=== PATIENT | female | born 1945 | race Caucasian/White ===

== ENCOUNTER 2023-12-01 18:29 | Inpatient (IN) | payer OTHER ==
[2023-12-01 19:47] LABS: BASO % 0.1 % (0-2.0); EOS % 0.1 % (0-4.5); HEMATOCRIT 44.5 % (32.4-45.2); HEMOGLOBIN 14.9 GM/dL (10.7-15.3); LYMPH % 5.1 % (8-40); MCH 28.7 pg (25.7-33.7); MCHC 33.5 g/dl (32.0-36.0); MEAN CELL VOLUME 85.6 fl (80-96); MEAN PLT VOLUME 9.2 fl (7.5-11.1); MONO % 5.2 % (3.8-10.2); NEUT % 89.5 % (42.8-82.8); PLATELET COUNT 286 10^3/uL (134-434); RBC 5.19 M/mm3 (3.60-5.2); WHITE BLOOD COUNT 17.8 K/mm3 (4.0-10.0)
[2023-12-01] MEDS ORDERED: FAMOTIDINE 20 MG/50 ML IVPB 20 MG/50 ML MG IVPB ONE (19:54)
[2023-12-01] MEDS ORDERED: ONDANSETRON 4 MG/2 ML VIAL ONE (19:54)
[2023-12-01] MEDS ORDERED: ACETAMINOPHEN INJECTION 100 ML ONE (19:54)
[2023-12-01 19:56] LABS: PROTHROMBIN TIME (PATIENT) 11.5 SEC (9.7-13.0)
[2023-12-01 19:59] LABS: ACTIVATED PTT 29.1 SECONDS (25.2-36.5)
[2023-12-01] MEDS: ACETAMINOPHEN 1000 MG/100 ML BAG IVPB ONE (20:01)
[2023-12-01] MEDS: FAMOTIDINE 20 MG/50 ML IVPB 20 MG/50 ML MG IVPB ONE (20:01)
[2023-12-01] MEDS: ONDANSETRON 4 MG/2 ML VIAL IVPUSH ONE (20:01)
[2023-12-01 20:07] LABS: POTASSIUM 3.1 mmol/L (3.5-5.1)
[2023-12-01 20:10] LABS: CALCIUM 10.2 mg/dL (8.5-10.1)
[2023-12-01 20:11] LABS: ALBUMIN 3.6 g/dl (3.4-5.0); BLOOD UREA NITROGEN 35.7 mg/dL (7-18)
[2023-12-01 20:14] LABS: CREATININE 1.3 mg/dL (0.55-1.3)
[2023-12-01 20:16] LABS: BILIRUBIN,TOTAL 0.6 mg/dL (0.2-1); TOT PROT 7.6 g/dl (6.4-8.2)
[2023-12-01] MEDS ORDERED: PANTOPRAZOLE SODIUM 40 MG/100 ML BAG IVPB ONE (20:17)
[2023-12-01] MEDS ORDERED: PANTOPRAZOLE SODIUM 40 MG VIAL ONE (20:18)
[2023-12-01] MEDS: PANTOPRAZOLE SODIUM 80 MG in SODIUM CHLORIDE 100 ML IVPB ONE (20:28)
[2023-12-01 23:43] LABS: URINE APPEARANCE CLEAR; URINE BILIRUBIN NEGATIVE (NEGATIVE); URINE COLOR YELLOW; URINE GLUCOSE (UA) NEGATIVE (NEGATIVE); URINE KETONE NEGATIVE (NEGATIVE)
[2023-12-01 23:44] LABS: PH,URINE 5.5 (5.0-8.0); URINE PROTEIN NEGATIVE (NEGATIVE)
[2023-12-01 23:45] LABS: EPI CELLS 12.8 /uL (0-25.1); HYALINE CASTS 0.29 /uL (0-3.1); URINE BACTERIA 12.3 /uL (0-1359); URINE LEUK ESTERASE NEGATIVE (NEGATIVE); URINE NITRITE NEGATIVE (NEGATIVE); URINE RBC 27.3 /uL (0-23.9); URINE WBC 28.6 /uL (0-25.8)
[2023-12-01] MEDS ORDERED: VANCOMYCIN 1 GRAM (PRE-DOCKED) 1,000 MG/250 ML BAG IVPB ONE (23:57)
[2023-12-01] MEDS ORDERED: CEFEPIME 2 GM/100 ML BAG IVPB ONE (23:57)
[2023-12-02] MEDS: CEFEPIME HCL 2 GM VIAL (RESTRICTED TO ID) IVPB ONE (00:04)
[2023-12-02] MEDS: VANCOMYCIN 1,000 MG in DEXTROSE 5%-WATER - 250 ML IVPB ONE (00:12)
[2023-12-02 01:34] LABS: HEMATOCRIT 35.8 % (32.4-45.2); MCHC 33.6 g/dl (32.0-36.0); MEAN CELL VOLUME 86.2 fl (80-96); MEAN PLT VOLUME 8.9 fl (7.5-11.1); PLATELET COUNT 225 10^3/uL (134-434); RBC 4.16 M/mm3 (3.60-5.2); RDW 13.7 % (11.6-15.6)
[2023-12-02] MEDS: POTASSIUM CHLORIDE 40 MEQ in SODIUM CHLORIDE 1,000 ML IVPB SCH (03:56)
[2023-12-02] MEDS ORDERED: PIPERACILLIN/TAZOB 3.375 GM 3.375 GM/50 ML BAG IVPB ONE ×2 (04:36→10:11)
[2023-12-02] MEDS: PIPERACILLIN/TAZOB 3.375 GM 3.375 GM in DEXTROSE 5%-WATER - 50 ML IVPB SCH ×3 (04:43→18:04)
[2023-12-02] MEDS ORDERED: INSULIN (LEVEMIR) 100 UNITS/ML UNITS SQ ONE (07:08)
[2023-12-02] MEDS: PIPERACILLIN/TAZOB 4.5 GM 4.5 GM in DEXTROSE 5%-WATER 100 ML IVPB SCH ×2 (07:12)
[2023-12-02 07:55] LABS: BASO % 0.3 % (0-2.0); EOS % 2.8 % (0-4.5); HEMATOCRIT 38.8 % (32.4-45.2); HEMOGLOBIN 12.9 GM/dL (10.7-15.3); LYMPH % 15.4 % (8-40); MCH 28.9 pg (25.7-33.7); MCHC 33.2 g/dl (32.0-36.0); MEAN CELL VOLUME 87.1 fl (80-96); MEAN PLT VOLUME 9.3 fl (7.5-11.1); MONO % 7.5 % (3.8-10.2); PLATELET COUNT 233 10^3/uL (134-434); RBC 4.46 M/mm3 (3.60-5.2); RDW 14.2 % (11.6-15.6); WHITE BLOOD COUNT 9.7 K/mm3 (4.0-10.0)
[2023-12-02 08:11] LABS: POTASSIUM 3.5 mmol/L (3.5-5.1)
[2023-12-02 08:16] LABS: ALBUMIN 2.9 g/dl (3.4-5.0); BLOOD UREA NITROGEN 43.7 mg/dL (7-18); MAGNESIUM 1.7 mg/dL (1.8-2.4)
[2023-12-02 08:19] LABS: CREATININE 1.3 mg/dL (0.55-1.3); PHOSPHOROUS 3.9 mg/dL (2.5-4.9)
[2023-12-02 08:20] LABS: BILIRUBIN,TOTAL 0.8 mg/dL (0.2-1); TOT PROT 5.8 g/dl (6.4-8.2)
[2023-12-02] MEDS ORDERED: CHLORTHALIDONE 25 MG TABLET PO SCH (10:00)
[2023-12-02] MEDS ORDERED: MAGNESIUM SULFATE IN WATER 2 GM/50 ML IVPB IVPB ONE (10:12)
[2023-12-02] MEDS: MAGNESIUM SULFATE IN WATER 2 GM/50 ML IVPB IVPB ONE (10:25)
[2023-12-02] MEDS: MEMANTINE HCL 10 MG TABLET (FP) PO SCH (10:25)
[2023-12-02] MEDS: amLODIPine BESYLATE 10 MG TABLET (FP) PO SCH (10:25)
[2023-12-02] MEDS: PANTOPRAZOLE SODIUM 40 MG VIAL IVPUSH SCH (12:52)
[2023-12-02] MEDS: POLYETHYLENE GLYCOL (HEALTHYLAX) 3350 17 GM PACKET PO SCH (14:44)
[2023-12-02 20:50] VITALS: BMI 29.3
[2023-12-02] MEDS: ROSUVASTATIN CA 10 MG TABLET PO SCH (22:07)
[2023-12-03 07:50] LABS: BASO % 0.2 % (0-2.0); EOS % 4.2 % (0-4.5); HEMATOCRIT 38.5 % (32.4-45.2); HEMOGLOBIN 12.8 GM/dL (10.7-15.3); LYMPH % 15.7 % (8-40); MCH 28.7 pg (25.7-33.7); MCHC 33.2 g/dl (32.0-36.0); MEAN CELL VOLUME 86.7 fl (80-96); MEAN PLT VOLUME 9.4 fl (7.5-11.1); MONO % 6.9 % (3.8-10.2); PLATELET COUNT 200 10^3/uL (134-434); RBC 4.45 M/mm3 (3.60-5.2); RDW 14.3 % (11.6-15.6); WHITE BLOOD COUNT 7.9 K/mm3 (4.0-10.0)
[2023-12-03] MEDS ORDERED: POTASSIUM CHLORIDE 40 MEQ in SODIUM CHLORIDE 1,000 ML IVPB SCH (07:58)
[2023-12-03 07:59] LABS: INR 0.99 (0.83-1.09); PROTHROMBIN TIME (PATIENT) 11.2 SEC (9.7-13.0)
[2023-12-03 08:10] LABS: POTASSIUM 3.6 mmol/L (3.5-5.1)
[2023-12-03 08:13] LABS: ALBUMIN 2.8 g/dl (3.4-5.0); BLOOD UREA NITROGEN 33.6 mg/dL (7-18); CALCIUM 8.6 mg/dL (8.5-10.1); MAGNESIUM 2.2 mg/dL (1.8-2.4)
[2023-12-03 08:17] LABS: BILIRUBIN,TOTAL 0.4 mg/dL (0.2-1); CREATININE 1.3 mg/dL (0.55-1.3); TOT PROT 5.8 g/dl (6.4-8.2)
[2023-12-03] MEDS: PANTOPRAZOLE 40 MG TABLET PO SCH (12:32)
[2023-12-03] MEDS: IOHEXOL (OMNIPAQUE IV) 350 MG/ML - 100 ML BOTTLE PO ONE (13:25)
[2023-12-03] MEDS: POTASSIUM CHLORIDE 40 MEQ in SODIUM CHLORIDE 1,000 ML IVPB SCH (15:27)
[2023-12-04 09:46] LABS: BASO % 0.4 % (0-2.0); EOS % 3.6 % (0-4.5); HEMATOCRIT 38.4 % (32.4-45.2); HEMOGLOBIN 12.7 GM/dL (10.7-15.3); LYMPH % 15.5 % (8-40); MCH 28.9 pg (25.7-33.7); MEAN CELL VOLUME 87.7 fl (80-96); MEAN PLT VOLUME 9.1 fl (7.5-11.1); MONO % 6.1 % (3.8-10.2); NEUT % 74.4 % (42.8-82.8); PLATELET COUNT 198 10^3/uL (134-434); RBC 4.38 M/mm3 (3.60-5.2); WHITE BLOOD COUNT 8.7 K/mm3 (4.0-10.0)
[2023-12-04 12:14] LABS: POTASSIUM 3.3 mmol/L (3.5-5.1)
[2023-12-04 12:16] LABS: CALCIUM 8.4 mg/dL (8.5-10.1)
[2023-12-04 12:17] LABS: BLOOD UREA NITROGEN 18.7 mg/dL (7-18); MAGNESIUM 1.9 mg/dL (1.8-2.4)
[2023-12-04 12:20] LABS: CREATININE 1.1 mg/dL (0.55-1.3)
[2023-12-04 12:21] LABS: BILIRUBIN,TOTAL 0.7 mg/dL (0.2-1)
[2023-12-04 12:22] LABS: TOT PROT 6.2 g/dl (6.4-8.2)
[2023-12-05 07:22] LABS: BASO % 0.4 % (0-2.0); EOS % 4.5 % (0-4.5); HEMATOCRIT 39.3 % (32.4-45.2); HEMOGLOBIN 13.3 GM/dL (10.7-15.3); LYMPH % 15.4 % (8-40); MCH 29.4 pg (25.7-33.7); MCHC 33.9 g/dl (32.0-36.0); MEAN PLT VOLUME 9.2 fl (7.5-11.1); MONO % 5.7 % (3.8-10.2); PLATELET COUNT 189 10^3/uL (134-434); RBC 4.51 M/mm3 (3.60-5.2); RDW 13.5 % (11.6-15.6); WHITE BLOOD COUNT 9.8 K/mm3 (4.0-10.0)
[2023-12-05 07:36] LABS: POTASSIUM 3.6 mmol/L (3.5-5.1)
[2023-12-05 07:41] LABS: CALCIUM 9.1 mg/dL (8.5-10.1)
[2023-12-05 07:42] LABS: ALBUMIN 3.2 g/dl (3.4-5.0); BLOOD UREA NITROGEN 15.3 mg/dL (7-18); MAGNESIUM 1.7 mg/dL (1.8-2.4)
[2023-12-05 07:45] LABS: CREATININE 0.9 mg/dL (0.55-1.3)
[2023-12-05 07:47] LABS: BILIRUBIN,TOTAL 0.6 mg/dL (0.2-1); TOT PROT 6.8 g/dl (6.4-8.2)
[2023-12-05] MEDS: CEFTRIAXONE 2 GM in DEXTROSE 5%-WATER 100 ML IVPB SCH (09:31)
[2023-12-05] MEDS: ALBUTEROL SO4 2.5/IPRATROPIUM 0.5 INH SOL 3 ML VIAL.NEB. NEB PRN (19:20)
[2023-12-06 08:02] LABS: BASO % 0.4 % (0-2.0); EOS % 4.9 % (0-4.5); HEMATOCRIT 38.1 % (32.4-45.2); HEMOGLOBIN 12.9 GM/dL (10.7-15.3); MCH 29.1 pg (25.7-33.7); MCHC 33.8 g/dl (32.0-36.0); MEAN CELL VOLUME 86.1 fl (80-96); MONO % 7.5 % (3.8-10.2); NEUT % 70.2 % (42.8-82.8); PLATELET COUNT 206 10^3/uL (134-434); RBC 4.43 M/mm3 (3.60-5.2); RDW 13.7 % (11.6-15.6); WHITE BLOOD COUNT 8.2 K/mm3 (4.0-10.0)
[2023-12-06 08:16] LABS: POTASSIUM 3.3 mmol/L (3.5-5.1)
[2023-12-06 08:20] LABS: BLOOD UREA NITROGEN 10.2 mg/dL (7-18)
[2023-12-06 08:23] LABS: CREATININE 0.9 mg/dL (0.55-1.3)
[2023-12-07] MEDS: PANTOPRAZOLE 40 MG TABLET PO SCH (02:42)
[2023-12-07 08:30] LABS: BASO % 0.6 % (0-2.0); EOS % 3.9 % (0-4.5); HEMATOCRIT 39.9 % (32.4-45.2); HEMOGLOBIN 13.2 GM/dL (10.7-15.3); LYMPH % 19.6 % (8-40); MCH 28.7 pg (25.7-33.7); MEAN CELL VOLUME 87.1 fl (80-96); MEAN PLT VOLUME 8.8 fl (7.5-11.1); MONO % 7.1 % (3.8-10.2); NEUT % 68.8 % (42.8-82.8); PLATELET COUNT 217 10^3/uL (134-434); RBC 4.58 M/mm3 (3.60-5.2); RDW 13.6 % (11.6-15.6); WHITE BLOOD COUNT 9.9 K/mm3 (4.0-10.0)
[2023-12-07 08:49] LABS: POTASSIUM 3.6 mmol/L (3.5-5.1)
[2023-12-07 08:53] LABS: BLOOD UREA NITROGEN 15.3 mg/dL (7-18); CALCIUM 9.3 mg/dL (8.5-10.1)
[2023-12-07] MEDS: PANTOPRAZOLE SODIUM 40 MG VIAL IVPUSH SCH (10:04)
[2023-12-08] MEDS: ACETAMINOPHEN 325 MG TABLET (FP) PO PRN (10:45)
[2023-12-08 14:10] VITALS: RESP 18
[2023-12-08 22:38] VITALS: BP 144/68; PULSE 65; TEMP 98.6
== END 2023-12-09 06:30 | DRG 194 ==
LOC: JER 18:29 → JERBED 12-02 01:41 → J7W 12-02 19:01
PROVIDERS: ADMIT Internal Medicine; ATTEND Internal Medicine
PROC: 0DJ08ZZ Inspection of Upper Intestinal Tract, Via Natural or Artificial Opening Endoscopic (ICD-10-PCS; principal; 2023-12-06 12:30)
DX: J18.9 Pneumonia, unspecified organism (principal); K92.0 Hematemesis; I10 Essential (primary) hypertension; F02.80 Dementia in other diseases classified elsewhere, unspecified severity, without behavioral disturbance, psychotic disturbance, mood disturbance, and anxiety; G30.9 Alzheimer's disease, unspecified; K44.9 Diaphragmatic hernia without obstruction or gangrene; K56.41 Fecal impaction; F25.9 Schizoaffective disorder, unspecified; N28.89 Other specified disorders of kidney and ureter; K20.90 Esophagitis, unspecified without bleeding; E78.5 Hyperlipidemia, unspecified; K21.9 Gastro-esophageal reflux disease without esophagitis
CPT/HCPCS: 0241U-QW; 36415; 71045-TC-FY; 71250-TC; 74018-TC-FY; 74174-TC; 76775-TC; 80048; 80053; 81003; 82272; 83735; 84100; 85025; 85027; 85610; 85730; 86850; 86900; 86901; 87040; 87077; 87081; 87086; 87186; 87899; 93005; 93010; 93306-TC; 94640; 97116-GP; 97161-GP; 99285-25; J0131; Q9967